=== PATIENT | male | born 1955 | race Caucasian/White ===

== ENCOUNTER 2021-05-25 10:23 | Emergency (ER) | payer MEDICARE, OTHER ==
[~2021-05-25] VITALS: Ht 195.6 cm; Wt 113.4 kg
[2021-05-25] MEDS ORDERED: PLAVIX 75 MG TA75 MG PO (10:38)
[2021-05-25 11:06] LABS: ABSOLUTE NEUTROPHILS 3.9 thou/uL (1.6-8.1); MPV 6.9 fl. (7.2-11.1)
[2021-05-25 11:07] LABS: ABSOLUTE EOSINOPHILS 0.2 thou/uL (0.0-0.7); ABSOLUTE LYMPHOCYTES 2.6 thou/uL (0.8-5.3); ABSOLUTE MONOCYTES 0.6 thou/uL (0.0-1.2); BASOPHILS 0.6 %; EOSINOPHILS 2.2 %; HEMATOCRIT 44.3 % (42.0-52.0); HEMOGLOBIN 15.3 gm/dL (14.0-18.0); LYMPHOCYTES 35.6 %; MCH 29.9 pg (26.0-34.0); MCHC 34.7 g/dL (28.0-37.0); MCV 86.3 fL (80.0-100.0); MONOCYTES 8.6 %; NUCLEATED RBCS 0 /100WBC; PLATELET COUNT* 261 thou/uL (150-400); RBC 5.13 mil/uL (4.50-6.00); RDW-CV 13.8 % (10.5-14.5); WBC 7.3 thou/uL (4.0-11.0)
[2021-05-25 11:10] LABS: CALCIUM 8.6 mg/dL (8.5-10.1); CREATININE 1.3 mg/dL (0.6-1.3); POTASSIUM 3.8 mmol/L (3.5-5.1)
[2021-05-25 11:26] LABS: ALBUMIN 3.7 g/dL (3.4-5.0); TOTAL BILIRUBIN 0.8 mg/dL (<0.1-1.0)
[2021-05-25 11:43] LABS: URINE BILIRUBIN NEGATIVE (Negative); URINE BLOOD 1+ (Negative); URINE CLARITY CLEAR; URINE COLOR YELLOW; URINE GLUCOSE-RANDOM NEGATIVE (Negative); URINE KETONES NEGATIVE (Negative); URINE LEUKOCYTES-REFLEX NEGATIVE (Negative); URINE NITRITE-REFLEX NEGATIVE (Negative); URINE PROTEIN NEGATIVE (Negative); URINE SPECIFIC GRAVITY 1.025 (1.005-1.030); URINE UROBILINOGEN 0.2 E.U./dl (0.2-1.0)
[2021-05-25 11:55] LABS: BACTERIA-REFLEX None Seen /HPF (None Seen); CASTS None Seen /LPF (None Seen); CRYSTALS None Seen /LPF (None Seen); SQUAMOUS NONE SEEN /LPF (0-3); URINE RBC 3-10 Few /HPF (0-2); URINE WBC-REFLEX None Seen /HPF (0-5)
[2021-05-25] MEDS ORDERED: FLOMAX0.4 MG PO ×2 (11:57→12:50)
[2021-05-25] MEDS ORDERED: PERCOCET PO ×2 (11:57→12:50)
[2021-05-25] MEDS ORDERED: CIPROFLOXACIN500 M1 PO ×2 (11:57→12:50)
[2021-05-25 12:13] VITALS: BP 136/61
== END 2021-05-25 12:14 | disposition home or self-care (01) ==
LOC: M.ERS 10:23
PROVIDERS: Family Medicine
DX: N20.0 Calculus of kidney (principal)